=== PATIENT | female | born 1975 | race Caucasian/White ===

== ENCOUNTER 2018-08-23 11:50 | Emergency (ER) | payer OTHER ==
[~2018-08-23] VITALS: Ht 160 cm; Wt 77.1 kg
[~2018-08-23 11:50] MED LIST: KETO10TA2 PO; ORPH100T PO
== END 2018-08-23 18:48 | disposition home or self-care (01) ==
LOC: ER 11:50
DX: K52.89 Other specified noninfective gastroenteritis and colitis (principal)

== ENCOUNTER 2021-06-19 05:35 | Emergency (ER) | payer OTHER ==
[~2021-06-19] VITALS: Ht 162.6 cm; Wt 79.4 kg
[2021-06-19] MEDS ORDERED: PREVACID30 MG PO (15:27)
[2021-06-19] MEDS ORDERED: PEPCID40 MG PO (15:28)
[2021-06-19] MEDS ORDERED: LEVSIN/SL0.125 MG PO (15:28)
[2021-06-19] MEDS ORDERED: CARAFATE1 GM PO (15:28)
[2021-06-19] MEDS ORDERED: ULTRAM50 MG PO (15:28)
== END 2021-06-19 16:07 ==
LOC: ER 05:35
DX: K52.89 Other specified noninfective gastroenteritis and colitis (principal); R11.11 Vomiting without nausea; K29.60 Other gastritis without bleeding
CPT/HCPCS: 74177; Q9965